=== PATIENT | female | born 1945 | race Caucasian/White ===

== ENCOUNTER → 2017-08-29 | Outpatient (CLI) | payer MEDICARE, BC, OTHER ==
[2016-11-24 17:35] VITALS: BP 133/79
--- NOTE | 2017-08-29 14:21 | RAD ---
DATE: 08/29/2017 EXAM: MAMMO RANI SCREENING BILATERAL HISTORY: Screening COMPARISON: 10/28/2015 This study was interpreted with the benefit of Computerized Aided Detection (CAD). FINDINGS: Breast Density: FATTY The Breast Parenchyma is primarily fatty replaced. Breast parenchyma level density A.. There has not been a significant change in the appearance of the breasts compared to the previous exam IMPRESSION: Benign findings BI-RADS CATEGORY: 2 BENIGN FINDING(S) RECOMMENDED FOLLOW-UP: 12M 12 MONTH FOLLOW-UP PQRS compliance statement: Patient information was entered into a reminder system with a target due date 08/29/2018 for the next mammogram. Mammography is a sensitive method for finding small breast cancers, but it does not detect them all and is not a substitute for careful clinical examination. A negative mammogram does not negate a clinically suspicious finding and should not result in delay in biopsying a clinically suspicious abnormality. "Our facility is accredited by the [employer] Mammography Program."
== END | disposition home or self-care (01) ==
LOC: MAMMO 11:09
PROVIDERS: ATTEND Specialist
DX: Z12.31 Encounter for screening mammogram for malignant neoplasm of breast (principal)
CPT/HCPCS: 77063; G0202; 77067

== ENCOUNTER → 2018-04-12 | Outpatient (CLI) | payer MEDICARE, BC, OTHER ==
[2016-11-24 17:35] VITALS: BP 133/79
--- NOTE | 2018-04-13 08:14 | RAD ---
Bilateral lower extremity arterial ultrasound History: Hypertension, diabetes, previous smoker, blue color of the bilateral feet Findings: Multiple grayscale, color, and duplex spectral analysis sonographic images were acquired of the lower extremity arteries bilaterally. No significant focal stenosis or vessel occlusion is demonstrated. There is minimal scattered plaque. There are mostly triphasic to biphasic waveforms bilaterally. Velocities in cm/sec: RIGHT Common femoral artery 94 Profunda femoris artery 69 Proximal SFA 74 Mid SFA 79 Distal SFA 63 Popliteal artery 63 Peroneal artery 46 Dorsalis pedis artery 48 Posterior tibial artery 47-54 Anterior tibial artery 71 LEFT: Common femoral artery 115 Profunda femoris artery 68 Proximal SFA 89 Mid SFA 85 Distal SFA 65 Popliteal artery 62 Peroneal artery 55 Dorsalis pedis artery 59 Posterior tibial artery 69-74 Anterior tibial artery 63 Impression: 1. No significant focal stenosis or vessel occlusion is demonstrated. Electronically signed by: Darion Barnett MD (04/13/2018 8:11 AM) [id number]
== END | disposition home or self-care (01) ==
LOC: US 15:01
PROVIDERS: ATTEND Specialist
DX: I70.293 Other atherosclerosis of native arteries of extremities, bilateral legs (principal); R23.0 Cyanosis; I10 Essential (primary) hypertension; E11.9 Type 2 diabetes mellitus without complications; Z87.891 Personal history of nicotine dependence
CPT/HCPCS: 93923

== ENCOUNTER 2018-05-21 22:13 | Inpatient (IN) | payer MEDICARE, BC, OTHER ==
[~2018-05-21] VITALS: Ht 157.5 cm; Wt 97.3 kg
--- NOTE | 2018-05-21 22:18 | ED.ADGEN ---
Past History Past Medical History: Arthritis, Cancer, Diabetes, Hypertension, Other Past Surgical History: Tonsillectomy, Other Alcohol Use: Occasionally Drug Use: None Adult General Chief Complaint Chief Complaint ".. I ve been sleeping all day... and my memory is not right.. and I am confused... I guess I came down to check on my .. and I had not been down all day... .. I noticed.. I having trouble finding words..and I ve been having problems.. with my memory tonight.... 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 I took some meds for my chronic back pain....but not that much... 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 Patient reportedly acting confused at home per and 's project engineering director. Patient appears to be overly sedated. Speech is slurred. Does have problems with word selection. Does have problems with memory on short term events. Patient is aware of this new finding. Patient advised she had taken muscle relaxers baclofen today for her back pain. Patient denies any other drug usage. Patient denies any alcohol usage. No history of fever or chills. No history of trauma or fall. Popeye Coma Scale was 15. The patient does appear to have slow response to questions. No focal defects appreciated other than gait was somewhat wide and slightly discoordinated. Has had a previous episode of this type confusion when she ingested too many pain tablets accidently. Pt. has hx of Stage IV, Kidney cancer. Pt. receiving immune therapy for cancer at . No chemo or radiation. No recent travel or ill contacts. has ALS. Pt. normally follows with Dr. Ortega. Review of Systems Review of Systems Constitutional: Denies fever or chills [] Eyes: Denies change in visual acuity, redness, or eye pain [] HENT: Denies nasal congestion or sore throat [] Respiratory: Denies cough or shortness of breath [] Cardiovascular: No additional information not addressed in HPI [] GI: Denies abdominal pain, nausea, vomiting, bloody stools or diarrhea [] : Denies dysuria or hematuria [] Musculoskeletal: Denies back pain or joint pain [] Integument: Denies rash or skin lesions [] Neurologic: Denies headache, focal weakness or sensory changes []complaints of confusion Endocrine: Denies polyuria or polydipsia [] All other systems were reviewed and found to be within normal limits, except as documented in this note. Family History Family History Non-contributory Current Medications Current Medications See Nursing for home meds Allergies Allergies Allergies Coded Allergies Type Severity Reaction Last Updated Verified Sulfa (Sulfonamide Antibiotics) Allergy Intermediate 11/24/16 Yes latex Allergy Intermediate 11/24/16 Yes Physical Exam Physical Exam Constitutional: , no acute distress, non-toxic appearance. [] HENT: Normocephalic, atraumatic, bilateral external ears normal, oropharynx moist, no oral exudates, nose normal. [] Eyes: PERRLA, EOMI, conjunctiva normal, no discharge. [] Neck: Normal range of motion, no tenderness, supple, no stridor. [] Cardiovascular:Heart rate regular rhythm, no murmur [] Lungs & Thorax: Bilateral breath sounds clear to auscultation []Port on Rt. Abdomen: Bowel sounds normal, soft, no tenderness, no masses, no pulsatile masses. [] Obese. Skin: Warm, dry, no erythema, no rash. [] Back: No tenderness, no CVA tenderness. [] Old surgery scar. Extremities: No tenderness, no cyanosis, no clubbing, ROM intact, no edema. [] Neurologic: Alert and oriented X 3, normal motor function, normal sensory function, no focal deficits noted. Supervisor Spring Up equal. DTR +2 Patella and Brachial. Slightly wide gait and slight discoordinated. Was slow to answer questions and word finding / selection. Slurred speech as if over sedated. Psychologic: Affect anxious, judgement normal, mood normal. [] Current Patient Data Vital Signs Vital Signs Date Time Temp Pulse Resp B/P (MAP) Pulse Ox O2 Delivery O2 Flow Rate FiO2 05/21/18 22:54 84 19 142/88 (106) 99 Room Air 05/21/18 22:21 98.3 Lab Results Laboratory Tests Test 05/21/18 22:21 05/21/18 22:44 White Blood Count 11.1 x10^3/uL (4.0-11.0) H Red Blood Count 4.68 x10^6/uL (3.50-5.40) Hemoglobin 13.2 g/dL (12.0-15.5) Hematocrit 41.0 % (36.0-47.0) Mean Corpuscular Volume 88 fL (79-100) Mean Corpuscular Hemoglobin 28 pg (25-35) Mean Corpuscular Hemoglobin Concent 32 g/dL (31-37) Red Cell Distribution Width 14.6 % (11.5-14.5) H Platelet Count 179 x10^3/uL (140-400) Neutrophils (%) (Auto) 80 % (31-73) H Lymphocytes (%) (Auto) 15 % (24-48) L Monocytes (%) (Auto) 4 % (0-9) Eosinophils (%) (Auto) 1 % (0-3) Basophils (%) (Auto) 1 % (0-3) Neutrophils # (Auto) 8.9 x10^3uL (1.8-7.7) H Lymphocytes # (Auto) 1.7 x10^3/uL (1.0-4.8) Monocytes # (Auto) 0.4 x10^3/uL (0.0-1.1) Eosinophils # (Auto) 0.1 x10^3/uL (0.0-0.7) Basophils # (Auto) 0.1 x10^3/uL (0.0-0.2) Erythrocyte Sedimentation Rate 24 (0-25) Prothrombin Time 10.4 SEC (9.4-11.4) Prothrombin Time INR 1.0 (0.9-1.1) PTT 29 SEC (23-33) Sodium Level 142 mmol/L (136-145) Potassium Level 4.5 mmol/L (3.5-5.1) Chloride Level 107 mmol/L (98-107) Carbon Dioxide Level 26 mmol/L (21-32) Anion Gap 9 (6-14) Blood Urea Nitrogen 22 mg/dL (7-20) H Creatinine 1.3 mg/dL (0.6-1.0) H Estimated GFR (Cockcroft-Gault) 40.2 Glucose Level 174 mg/dL (70-99) H Calcium Level 9.7 mg/dL (8.5-10.1) Magnesium Level 1.6 mg/dL (1.8-2.4) L Ammonia < 10 mcmol/L (11-34) L Creatine Kinase 114 U/L (26-192) Creatine Kinase MB (Mass) 1.9 ng/mL (0.0-3.6) Creatine Kinase MB Relative Index 1.7 % (0-4) Troponin I Quantitative < 0.017 ng/mL (0-0.055) HO-Fpr-I-Type Natriuretic Peptide 850 pg/mL (0-124) H Urine Collection Type Unknown Urine Color Yellow Urine Clarity Clear Urine pH 5.5 Urine Specific [place] 1.015 Urine Protein 30 mg/dl (NEG-TRACE) Urine Glucose (UA) Neg mg/dL (NEG) Urine Ketones (Stick) Neg mg/dL (NEG) Urine Blood Neg (NEG) Urine Nitrite Neg (NEG) Urine Bilirubin Neg (NEG) Urine Urobilinogen Dipstick 0.2 mg/dL (0.2 mg/dL) Urine Leukocyte Esterase Neg (NEG) Urine RBC 0 /HPF (0-2) Urine WBC Occ /HPF (0-4) Urine Squamous Epithelial Cells Occ /LPF Urine Bacteria 0 /HPF (0-FEW) Urine Opiates Screen Neg (NEG) Urine Methadone Screen Neg (NEG) Urine Barbiturates Neg (NEG) Urine Phencyclidine Screen Neg (NEG) Urine Amphetamine/Methamphetamine Neg (NEG) Urine Benzodiazepines Screen Neg (NEG) Urine Cocaine Screen Neg (NEG) Urine Cannabinoids Screen Neg (NEG) Urine Ethyl Alcohol Neg (NEG) EKG EKG My interpretation of EKG shows sinus 66, Lt. axis, no acute[] Radiology/Procedures Radiology/Procedures My interpretation of chest x-ray shows no acute cardiopulmonary findings. Does have a port on the right. [] My interpretation CT of head shows no shift, mass, edema, bleed, or fracture. No obvious metastatic lesion, but it is a non-contrast CT Course & Med Decision Making Course & Med Decision Making Pertinent Labs and Imaging studies reviewed. (See chart for details) Discussed presentation, testing and tx. plan with Dr. Mcfarland. Pt. to be admitted or further eval and tx. by Dr. Mcfarland. Neuro consult in [place] Dr. Edilson Be Suspect this is untoward or an over sedation with baclofen. Could consider- metastatic lesions? [] Final Impression Final Impression 1. Mental Status Change[] 2. Elevated BUN and creatinine 22/`1.2 3. Diabetes 174 4. Mild leukocytosis 5. Stage IV renal cancer- on Immuno therapy - Rt. Renal mass 6. Chronic Back Pain- history of laminectomy 7. Suspect Over Sedation with Muscle Relaxer- baclofen 8. Hx. of recent UTI- Txed. Dragon Disclaimer Dragon Disclaimer This electronic medical record was generated, in whole or in part, using a voice recognition dictation system. DIAMOND CAMPOVERDE MD May 21, 2018 22:18
[2018-05-21 22:53] LABS: BASO # 0.1 x10^3/uL (0.0-0.2); BASO % 1 % (0-3); EOS # 0.1 x10^3/uL (0.0-0.7); EOS % 1 % (0-3); HEMOGLOBIN 13.2 g/dL (12.0-15.5); LYMPH # 1.7 x10^3/uL (1.0-4.8); LYMPH % 15 % (24-48); MEAN CORPUSCULAR HEMOGLOBIN 28 pg (25-35); MEAN CORPUSCULAR HGB CONC 32 g/dL (31-37); MEAN CORPUSCULAR VOLUME 88 fL (79-100); MONO # 0.4 x10^3/uL (0.0-1.1); MONO % 4 % (0-9); NEUT # 8.9 x10^3uL (1.8-7.7); NEUT % 80 % (31-73); PLATELET COUNT 179 x10^3/uL (140-400); RED BLOOD COUNT 4.68 x10^6/uL (3.50-5.40); RED CELL DISTRIBUTION WIDTH 14.6 % (11.5-14.5); WHITE BLOOD COUNT 11.1 x10^3/uL (4.0-11.0)
[2018-05-21 23:14] LABS: BARBITURATES NEG (NEG); BENZODIAZEPINES NEG (NEG); CANNABINOIDS NEG (NEG); COCAINE NEG (NEG); METHADONE NEG (NEG); OPIATES NEG (NEG); PHENCYCLIDINE NEG (NEG)
[2018-05-21 23:15] LABS: AMPHETAMINE/METHAMPHETAMINE NEG (NEG)
[2018-05-21 23:16] LABS: CALCIUM 9.7 mg/dL (8.5-10.1); CREATININE 1.3 mg/dL (0.6-1.0); GFR 40.2; MAGNESIUM 1.6 mg/dL (1.8-2.4); POTASSIUM 4.5 mmol/L (3.5-5.1)
[2018-05-21 23:19] LABS: BACTERIA,URINE 0 /HPF (0-FEW); BILIRUBIN,URINE NEG (NEG); CLARITY,URINE CLEAR; COLOR,URINE YELLOW; GLUCOSE,URINE NEG (NEG); NITRITE,URINE NEG (NEG); RBC,URINE 0 /HPF (0-2); SQUAMOUS EPITHELIAL CELL,UR OCC /LPF; UROBILINOGEN,URINE 0.2 mg/dL (0.2 mg/dL); WBC,URINE OCC /HPF (0-4)
[2018-05-22 00:02] LABS: SEDIMENTATION RATE 24 (0-25)
--- NOTE | 2018-05-22 00:10 | RAD ---
PA and lateral chest x-ray HISTORY: Altered mental status, confusion, renal cancer. FINDINGS: Right jugular portacatheter tip radiographic region of SVC. Heart size normal. Mediastinal silhouette is normal. Small calcified granuloma right upper lobe. No pneumothorax, pulmonary opacities or pleural effusions. Bridging thoracic disc osteophytes are present. IMPRESSION: No acute process. Right jugular portacatheter tip SVC. No pneumothorax. Electronically signed by: Judson Lewis MD (05/22/2018 12:07 AM) [facility]
[2018-05-22] MEDS ORDERED: ONDANSETRON PF 4 MG/2 ML VIAL. ONE (00:46)
[2018-05-22] MEDS ORDERED: ROSU10TA25 PO (01:01)
[2018-05-22] MEDS ORDERED: ESOM40CA47 PO (01:01)
[2018-05-22] MEDS ORDERED: FESO8TAB PO (01:01)
[2018-05-22] MEDS ORDERED: LISI-334 PO (01:01)
[2018-05-22] MEDS ORDERED: SITA100T PO (01:01)
[2018-05-22 01:15] VITALS: BP 156/83
--- NOTE | 2018-05-22 03:22 | RAD ---
CT head without contrast HISTORY: Altered mental status, confusion, stage IV renal cancer. TECHNIQUE: [address] imaging skull base to vertex. FINDINGS: Mild generalized brain atrophy. No intracranial hemorrhage, mass, hydrocephalus, extra-axial fluid collections or infarction. No acute ischemic change. Soft tissue calcifications about the frontal scalp and bridge of the nose. Opacification right posterior ethmoid sinuses. Mastoids, orbits and bones are unremarkable. IMPRESSION: No acute intracranial CT abnormality. Exposure: One or more of the following individualized dose reduction techniques were utilized for this examination: 1. Automated exposure control 2. Adjustment of the mA and/or kV according to patient size 3. Use of iterative reconstruction technique Electronically signed by: Judson Lewis MD (05/22/2018 3:19 AM) [facility]
[2018-05-22 06:31] VITALS: BP 137/80
[2018-05-22 11:10] VITALS: BP 131/79
[2018-05-22 11:21] LABS: ALBUMIN 3.8 g/dL (3.4-5.0); ALBUMIN/GLOBULIN RATIO 0.9 (1.0-1.7); TOTAL PROTEIN 7.9 g/dL (6.4-8.2)
[2018-05-22 11:22] LABS: CALCIUM 9.7 mg/dL (8.5-10.1); CREATININE 1.3 mg/dL (0.6-1.0); GFR 40.2; POTASSIUM 4.7 mmol/L (3.5-5.1); TOTAL BILIRUBIN 0.4 mg/dL (0.2-1.0)
--- NOTE | 2018-05-22 12:00 | HP ---
ADMIT DATE: 05/21/2018 HISTORY OF PRESENT ILLNESS: The patient is a 72-year-old female patient who came to the Emergency Room with complaint of increased confusion. She reportedly acting confused at home. Per and 's sea air land officer, the patient appears to be overly sedated, speech is slurred. She does have problems with word selection and short-term memory. She is aware of this new finding. The patient advised that she has taken muscle relaxer, baclofen yesterday for her back pain. Denied any drug usage. She denied any alcohol. No history fever or chills. Her Popeye coma scale on arrival was 15. The patient does appear to have low response to questions, but no focal deficit was appreciated other than the gait was somewhat wide and slightly disorganized, discoordinated. She apparently has similar episode of confusion after she ingested too many pain tablets accidentally. She has history of stage 4 kidney cancer, receiving immunotherapy for cancer at , and no chemoradiation. The patient denied any recent travel or ill contact. Her has amyotrophic lateral sclerosis. She is the caregiver. She apparently was evaluated extensively in the Emergency Room. Her laboratory work showed mild leukocytosis. Her chemistry showed kidney impairment. Her serum calcium was only 9.7, magnesium was 1.6. Unfortunately, no serum albumin to corrected for. Her toxic screen was essentially negative. Urinalysis was unremarkable and her CT scan of the head showed mild generalized brain atrophy, no intracranial hemorrhage, mass, hydrocephalus, extraaxial fluid collection, or infarction. No acute ischemic changes. Soft tissue calcification about the frontal scalp and bridge of the nose. Opacification in the right posterior ethmoid sinuses and mastoids with bones are unremarkable. It has to be corrected for albumin. It could be higher, it could be the same normal, so I cannot really tell have to be the albumin to asked them to check it. PAST MEDICAL HISTORY: Her past medical history is significant for type 2 diabetes, hypertension, hyperlipidemia, occupational asthma, renal cell carcinoma of the left kidney diagnosed incidentally, chronic back pain, obstructive sleep apnea. PAST SURGICAL HISTORY: Past surgical history is significant for left heart catheterization, bilateral cataract extraction, tonsillectomy, sinus surgery, EGD and colonoscopy. She has also ruptured Achilles tendon as well as total abdominal hysterectomy and bilateral salpingo-oophorectomy and back surgery. ALLERGIES: SHE IS ALLERGIC TO LATEX, LIPITOR, AND DILAUDID WELL SULFA DRUGS. MEDICATIONS: She is currently on following medications: She is on Crestor 10 mg once a day, lisinopril 20 mg once a day, esomeprazole for Nexium 40 mg once a day, Januvia 100 mg daily, and Toviaz 8 mg daily. FAMILY HISTORY: She has no brothers or sister. Her father at the age of 75 because of the complication of open heart surgery. He is also diabetic and mother at the age of 74 because of pancreatic cancer. SOCIAL HISTORY: She is , taking care of her , who has amyotrophic lateral sclerosis. She has a son and a daughter. She smoked for 15 years, quit in 1995. She has not drink alcohol in 3 years. She is a retired registered nurse. REVIEW OF SYSTEMS: The patient denied any blurring of vision. She has bilateral cataract extractions but denied any glaucoma or macular degeneration. Denied any earache, tinnitus or sensorineural deafness. Denied nosebleeds, stuffy nose or postnasal drip. Denied any sore throat, sore tongue, toothache, hoarseness of voice or difficulty swallowing. Denied any nausea, vomiting, diarrhea or constipation. Denied any hematemesis, melena or hematochezia. Denied any chest pain, shortness of breath, orthopnea or paroxysmal nocturnal dyspnea. Denied any cough, phlegm or hemoptysis. PHYSICAL EXAMINATION: GENERAL: When I examined her, she looked well and was clearly in no apparent respiratory distress, pale, but no jaundice, cyanosis, or thyromegaly. No jugular venous distension. No lower limb edema. VITAL SIGNS: Her heart rate was 79, blood pressure was 142/88, temperature was 98.3, respiratory rate 21, and oxygen saturation was 98%. HEENT: Examination of the head, eyes, ears, nose and throat showed normocephalic, atraumatic. NECK: Supple. HEART: Showed normal first and second sounds. No gallop, rub or murmur. CHEST: Clear to auscultation. No crepitation or rhonchi. ABDOMEN: Distended, soft, nontender. NEUROLOGIC: She is awake, alert, responding appropriately. Her cranial nerves are intact. She moves extremities without difficulty. She ambulates without assistance or assistive devices on her own. There is no evidence of any cerebellar dysfunction and Romberg's test was negative. LABORATORY AND DIAGNOSTIC DATA: While in the Emergency Room, she had lab work done showed a white cell count of 11,100, hemoglobin 13.2, hematocrit 41, MCV 88, and platelet count of 179,000 with normal manual differential. Serum sodium 142, potassium 4.5, chloride 107, bicarbonate 26, anion gap of 9, BUN 22, creatinine 1.3, estimated GFR was 40 mL per minute. Her glucose was 174, calcium was 9.7, magnesium was 1.6. Ammonia was less than 10. CK, CK-MB, and troponin are within normal range. Her beta natriuretic peptide was slightly elevated at 150. Her prothrombin time was 10.4, INR of 1, aPTT was 29. Urinalysis showed the urine was yellow, clear with the pH of 5.5, specific gravity of 1.015. There was small amount of protein. The urine was negative for glucose, ketones, blood, nitrites, and leukocyte esterase. There are no RBCs, no WBCs, and no bacteria, and her urine toxicology screen was negative. She did have a CT scan of the head, which showed that she has mild generalized brain atrophy, no intracranial hemorrhage, mass, hydrocephalus, extraaxial fluid collection, or infarction. No acute ischemic changes. Soft tissue calcification about the frontal scalp and the bridge of the nose. Opacification of the right posterior ethmoid sinuses, mastoids, orbits, and bones are unremarkable. Her chest x-ray showed right jugular Port-A-Cath at radiographic region of the superior vena cava and heart size is normal, mediastinal silhouette normal, small calcified granuloma right upper lobe. No pneumothorax, pulmonary opacities or pleural effusion. Bridging thoracic disk osteophytes are present. ASSESSMENT AND PLAN: So, basically, this is a 72-year-old female patient, who came in with altered mental status and mild leukocytosis, slightly elevated BUN and creatinine, stage 4 renal cell cancer, on immunotherapy. Right now, she has chronic back pain and apparently suspected over sedation with a muscle relaxer and she took baclofen. We have consulted Dr. Schmidt for evaluation and treatment. Her serum albumin was not done, so we will repeat the labs to adjust her calcium as she is known to have hypercalcemia due to stage 4 renal cell carcinoma and we will decide on further management according to the finding. MAXIMILIAN ARROYO MD DR: Elizabet JOB#: [id number] / [id number]
[2018-05-22] MEDS: OXYBUTYNIN CHLORIDE 5 MG TABLET PO SCH ×2 (13:33→21:22)
[2018-05-22 14:57] VITALS: BP 125/79
[2018-05-22] MEDS ORDERED: ACETAMINOPHEN 325 MG TABLET PO PRN (15:15)
[2018-05-22 19:00] VITALS: BP 120/64
[2018-05-22] MEDS ORDERED: ATORVASTATIN CALCIUM 20 MG TABLET PO SCH (21:00)
--- NOTE | 2018-05-22 21:18 | PN ---
DATE: 05/22/2018 SUBJECTIVE: The patient was admitted with altered mental status. On arrival here, overly sedated. Speech is slurred. She does have problems with word selection and short-term memory. Her daughter stated that she has similar presentation. Her calcium was high, so I did repeat her lab work this morning to include serum albumin and in fact, her calcium was 9.7, corrected for albumin of 3.8 and calcium is well within normal range. She has slightly impaired kidney function, which is stable. Her serum sodium is normal. Her white cell count slightly elevated; however, CT scan of the head was unremarkable. When I examined her this morning, she looked well and was clearly in no apparent respiratory distress, seemed to be more awake, alert, although she seemed to have some kind of pressured speech, continued to have some difficulty finding words. PHYSICAL EXAMINATION: GENERAL: The patient looked well and slightly pale, but no jaundice, cyanosis, or thyromegaly. No jugular venous distension. No limb edema. VITAL SIGNS: Her heart rate was 73, blood pressure was 131/79, temperature was 98.3, respiratory rate 20, and oxygen saturation was 93%. NEUROLOGIC: She was awake, alert, responding appropriately. Her cranial nerves intact. She moves extremities without difficulty. She ambulates without assistance or assistive devices. She has no evidence of cerebellar dysfunction and Romberg test was negative. LABORATORY DATA: This morning showed a serum sodium of 141, potassium 4.7, chloride 105, bicarbonate 28, anion gap of 8, BUN 20, creatinine 1.3, estimated GFR was 40 mL per minute. Her glucose was 152. Her calcium was 9.7. Total bilirubin, AST, ALT, alkaline phosphatase were normal. Total protein was 7.9, albumin was 3.8. Ammonia was normal. IMPRESSION: This is a 72-year-old female patient who was admitted with altered mental status, slightly elevated BUN and creatinine. The patient has nephrectomy for renal cell carcinoma. She is known to have diabetes, had mild leukocytosis. She has stage IV renal cell carcinoma and immunotherapy, chronic back pain, and history of laminectomy. She apparently was admitted with a questionable oversedation with a muscle relaxer. She has recent urinary tract infection that was treated. Urinalysis was unremarkable. PLAN: My plan is to consult Dr. Obregon for further evaluation. I will repeat all her lab works tomorrow and decide on further management accordingly. MAXIMILIAN ARROYO MD DR: MAGALYS/sofia JOB#: [id number] / [id number]
[2018-05-22 22:51] VITALS: BP 114/48
[2018-05-23 06:14] LABS: HEMATOCRIT 38.2 % (36.0-47.0); HEMOGLOBIN 12.5 g/dL (12.0-15.5); RED BLOOD COUNT 4.34 x10^6/uL (3.50-5.40); RED CELL DISTRIBUTION WIDTH 14.7 % (11.5-14.5); WHITE BLOOD COUNT 9.4 x10^3/uL (4.0-11.0)
[2018-05-23 06:24] LABS: ALBUMIN 3.6 g/dL (3.4-5.0); CALCIUM 9.4 mg/dL (8.5-10.1); CREATININE 1.2 mg/dL (0.6-1.0); POTASSIUM 4.6 mmol/L (3.5-5.1); TOTAL BILIRUBIN 0.5 mg/dL (0.2-1.0); TOTAL PROTEIN 7.3 g/dL (6.4-8.2)
[2018-05-23 06:25] VITALS: BP 118/81
[2018-05-23] MEDS ORDERED: PANTOPRAZOLE 40 MG TABLET. PO SCH (07:30)
--- NOTE | 2018-05-23 07:54 | RAD ---
Carotid ultrasound, 05/22/2018: HISTORY: Dizziness, altered mental status Duplex evaluation of the carotid arteries and neck was performed including grayscale, color-flow and spectral Doppler analysis. There is a mild to moderate focal plaque at the right carotid bulb. It appears partially calcified. The peak systolic velocity in the right internal carotid artery is 56 cm/s with an end-diastolic velocity of 16 cm/s and an internal carotid to common carotid artery ratio 1.4. These Doppler findings suggest luminal narrowing in the 0-50 percent diameter range. There is mild plaquing at the left carotid bifurcation. The peak systolic velocity in the left internal carotid artery is 44 cm/s with an end-diastolic velocity of 13 cm/s and an internal carotid to common carotid artery ratio of 0.9. Antegrade flow is present in both vertebral arteries in the neck. IMPRESSION: Mild atherosclerotic plaquing at both carotid bifurcations, right greater than left with underlying luminal narrowing in the 0-50 percent diameter range bilaterally. Note: Stenosis calculations for CT, MRA and conventional angiography are based upon determination of the distal ICA diameter in accordance with the NASCET methodology. Stenosis calculations for Doppler studies are derived from validated velocity criteria which are known to correlate with NASCET methodology of determining stenosis. Electronically signed by: Clinton Gonzales MD (05/23/2018 7:51 AM) [facility]
[2018-05-23 08:46] VITALS: BP 118/81
[2018-05-23] MEDS: OXYBUTYNIN CHLORIDE 5 MG TABLET PO SCH (08:47)
[2018-05-23] MEDS ORDERED: LISINOPRIL 20 MG TABLET PO SCH (09:00)
[2018-05-23] MEDS ORDERED: LINAGLIPTIN 5 MG TABLET PO SCH (09:00)
--- NOTE | 2018-05-23 09:34 | CONS ---
DATE OF CONSULTATION: 05/22/2018 NEUROLOGIC CONSULT REFERRING PHYSICIAN: Dr. Mcfarland. CHIEF COMPLAINT: Mental status changes. HISTORY OF PRESENT ILLNESS: This is a 72-year-old right-handed female who was admitted through Emergency Room after she presented with 1 day -- intermittent confusion, described as a short-term memory difficulty finding words and unsteady and in the Emergency Room, the patient was found to have a slurred speech. She stated she probably overdosed of muscle relaxants. She took it prior to the admission. According to her, she took baclofen, number is uncertain, probably 1 or more tablets. The patient has been recently treated for urinary tract infections. Currently, she denies headaches, visual disturbances, nausea, vomiting, chest pain, shortness of breath or palpitation. She has been suffering from chronic lower back pain. She denies any recent head injuries or falls. Initial nonenhanced head CT scan revealed no evidence of acute intracranial process. The patient was admitted for further evaluation for her alteration of mental status. PAST MEDICAL HISTORY: Significant for diabetes mellitus type 2, hypertension, hyperlipidemia, asthma, stage 4 of renal cell carcinoma diagnosed at [facility] for which she has been receiving immunotherapy, but no chemo or radiation. The patient stated that last result of workup for kidney cancer was promising and showed a shrinking of the tumor. History of chronic radicular lower back pain and obstructive sleep apnea. PAST SURGICAL HISTORY: Significant for a lumbosacral laminectomy, sinus surgery, tonsillectomy, cataract extraction, total abdominal hysterectomy. SOCIAL HISTORY: The patient is . 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 She denies smoking, alcohol drinking, or illicit drug use. REVIEW OF SYSTEMS: A 10-point review of system was performed as mentioned above in history of present illness. However, she denies a history of syncope for seizure or head injuries. CURRENT HOME MEDICATIONS: Crestor 10 mg daily, lisinopril 20 mg daily, esomeprazole 40 mg daily, Januvia 100 mg daily and Toviaz 8 mg daily. ALLERGIES: DILAUDID, SULFA DRUGS, LIPITOR AND LATEX. PHYSICAL EXAMINATION: GENERAL: A moderately obese white female, in no acute distress. VITAL SIGNS: Blood pressure 137/80, respiratory rate 20, pulse of 77 regular, temperature 98.2, oxygen saturation 96% on room air. HEENT: Normocephalic, atraumatic, otherwise unremarkable. NECK: Supple. Negative for carotid bruit, lymphadenopathy or thyromegaly. LUNGS: Clear to A and P. CARDIOVASCULAR: Regular rhythm, normal S1, S2. There is no S3, S4 or murmur. ABDOMEN: Soft. Bowel sounds positive. EXTREMITIES: Negative for cyanosis, clubbing or pitting edema. MENTAL STATUS: The patient is alert and oriented x 3. Speech is fluent. There is no language dysfunction. The patient recalls 3/3 immediately and 2/3 after 1 and 3 minutes. Judgment and abstract thinking is normal. The patient denies hallucination or delusion. CRANIAL NERVES: Visual pope are full. The pupils are reactive to light and accommodation. The extraocular movements are intact. There is no nystagmus. There is no facial motor or sensory deficit. Hearing is intact bilaterally. The palate is elevated symmetrically. Sternocleidomastoid muscles are powerful bilaterally. The patient shrugs her shoulders symmetrically. Protrudes her tongue in the midline without fasciculation or atrophy. MOTOR EXAMINATION: No focal muscle bulk was seen. The tone is normal. The strength is 5/5 throughout. Sensory examination revealed normal pinprick and light touch senses throughout. Deep tendon reflexes were symmetric and with absent Achilles responses. Gait: The stance is steady, but tandem gait is difficult. DIAGNOSTIC DATA: Initial nonenhanced head CT scan revealed no acute intracranial process, but showed mild generalized brain atrophy consistent with her age, otherwise unremarkable. Chest x-ray was negative for any acute cardiopulmonary process. LABORATORY DATA: CBC revealed white blood cells of 11,100; hemoglobin 13.2; hematocrit 41; platelet count 179,000. Chemistry revealed sodium 141, potassium 4.7, chloride 105, CO2 of 28, BUN 20, creatinine 1.3, glucose 152, calcium 9.7. Enzymes are normal. Albumin is normal. Urinalysis is negative for urinary tract infections and urine drug screen is negative. PT is 10.4, INR is 1, aPTT is 29. IMPRESSION: 1. Acute mental status changes, likely due to over sedation by muscle relaxant; however, we also need to rule out a possibility of a transient ischemic attack. 2. Multiple medical problems include obstructive sleep apnea, hypertension, hyperlipidemia, diabetes mellitus type 2, chronic lower back pain and history of stage 4 renal carcinoma treated with immunotherapy. RECOMMENDATIONS: 1. We will continue with current management initiated by Dr. Mcfarland. 2. I will obtain carotid Doppler study. M Haile MONCADA MD DR: BIANCA/sofia JOB#: [id number] / [id number]
--- NOTE | 2018-05-23 12:25 | DS ---
DATE OF DISCHARGE: 05/23/2018 HISTORY OF PRESENT ILLNESS: The patient is a 72-year-old female patient who was admitted with altered mental status. She apparently was overly sedated when she took a muscle relaxer, was having problems with word selection and short-term memory. Her daughter stated that she has similar presentation when her calcium was high and I did actually check her calcium and serum albumin and her calcium is within normal range. All her lab works are fine. When I saw her today, the patient was working with the occupational therapist and denied any complaint. She seemed to be completely awake, alert, oriented to time, place and person. Denied to have any further problems with finding words, insisting that she wants to go home. She has her appointment tomorrow and she would not miss it for anything else. Nursing staff did not voice any concerns that she had an uneventful night. PHYSICAL EXAM: GENERAL: When I examined her, she looked well and was clearly in no apparent respiratory distress, pale, but no jaundice, cyanosis, or thyromegaly. No jugular venous distension. No limb edema. VITAL SIGNS: Her heart rate was 60, blood pressure 118/81, temperature was 98.3, respiratory rate 20, and oxygen saturation was 98% on room air. HEAD, EYES, EARS, NOSE AND THROAT: Showed normocephalic, atraumatic. NECK: Supple. HEART: Showed normal first and second sounds. No gallop, rub or murmur. CHEST: Clear to auscultation. No crepitation or rhonchi. ABDOMEN: Distended, soft, nontender. NEUROLOGIC: She is awake, alert, responding appropriately. All cranial nerves are intact. She moves extremities without difficulty. She is able to ambulate without assistance or assistive devices. LABORATORY DATA: This morning showed a serum sodium 142, potassium 4.6, chloride 106, bicarbonate 27, anion gap of 9, BUN 24, creatinine 1.2, estimated GFR was 44 mL per minute. Her glucose 140, calcium was 9.4. Total bilirubin, AST, ALT, alkaline phosphatase were normal. Total protein was 7.3, albumin was 3.6. Her white cell count was 9400, hemoglobin 12.5, hematocrit 38, MCV 88, and platelet count of 175,000. DISCHARGE MEDICATIONS: She was discharged home on Nexium 40 mg once a day, Toviaz 8 mg daily, lisinopril 20 mg once a day and sitagliptin phosphate for Januvia 100 mg once a day. FINAL DISCHARGE DIAGNOSES: 1. Altered mental status likely due to muscle relaxer, resolved. 2. Chronic renal failure. She has a nephrectomy due to stage 4 renal cell carcinoma, on immunotherapy. 3. Type 2 diabetes mellitus. 4. Chronic back pain. MAXIMILIAN ARROYO MD DR: MAGALYS/sofia JOB#: [id number] / [id number]
--- NOTE | 2018-05-23 12:26 | CONS ---
DATE OF CONSULTATION: 05/23/2018 ADDENDUM If you have any problems regarding that, just give me a call at my office, my office number [phone]. M Haile MONCADA MD DR: BIANCA/sofia JOB#: [id number] / [id number]
--- NOTE | 2018-05-24 00:44 | CONS ---
DATE OF CONSULTATION: 05/22/2018 PSYCHIATRIC CONSULTATION This late entry 05/22/2018 covers elements not covered in my initial note 05/22/2018. IDENTIFYING DATA: The patient is a 72-year-old female, seen in room 1131, [address] [place] [address], for a psychiatric consult requested by Dr. Mcfarland on account of the patient's "manic" symptoms. The patient seen individually, discussed with nursing staff, reviewed the chart. I met with the patient's daughter who is visiting from [place]. CHIEF COMPLAINT: "She is 180 degrees better this evening than she was this morning." This is according to the daughter. According to the patient, "I just like to talk too much. 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 My mind is okay." HISTORY OF PRESENT ILLNESS: Reportedly, the patient lives at home with her who suffers from Lizeth Gehrig's disease and she has been taking care of him. Reportedly, she presented to the Emergency Room with increased confusion. According to the and 's zipper setter chainstitch, she was overly sedated. Speech was slurred, having word selection problem, short term memory problems, and this was a new finding. She had taken baclofen evening of Tuesday and then slept 24 hours after that, but not used any other prescription or nonprescription medications. Initially, she was slow to respond to questions, but there were no focal deficits noted. She was disorganized and discoordinated. She additionally has a history of stage 4 kidney cancer, receiving immunotherapy at . No chemoradiation. Her workup in the ER showed mild leukocytosis, kidney impairment. Calcium 9.7, magnesium 1.6. Urine toxicology was negative as was the UA. CT showed mild generalized atrophy, no acute changes. All of this persisted well into her hospitalization, but as noted above, according to the daughter, the patient has had a significant resolution of the confusion during the day on 05/22/2018 and by the evening when I saw her, the daughter felt that the patient was almost back to normal. There is no prior history of bipolar disorder, depression, or psychiatric treatment. No substance abuse history. PAST PSYCHIATRIC HISTORY: As above. PAST MEDICAL HISTORY: Type 2 diabetes mellitus, hypertension, hyperlipidemia, asthma, renal cell carcinoma, left kidney, diagnosed incidentally, chronic back pain, obstructive sleep apnea. PAST SURGICAL HISTORY: Left heart catheterization, bilateral cataract extraction, tonsillectomy, sinus surgery, EGD, colonoscopy. She has also ruptured Achiles tendon as well as total abdominal hysterectomy, bilateral salpingo-oophorectomy, back surgery. ALLERGIES: LATEX, LIPITOR, DILAUDID, SULFA. CURRENT PSYCHOTROPICS: Noncontributory. FAMILY HISTORY: Noncontributory. SOCIAL HISTORY: The patient is , taking care of her , who has amyotrophic lateral sclerosis. She has a son and a daughter. She smoked for 15 years, quit in 1995. No alcohol use noted. She is a registered nurse. REVIEW OF SYSTEMS: Does complain of some shortness of breath, anxiety, but no CV, , GI, pulmonary, eye system symptoms on review other than above. MENTAL STATUS EXAMINATION: The patient was seen individually evening of 05/22/2018. She was oriented to place, situation, little confused about date of her renal surgery and back surgery, but with a little help, she was able to correct for this. She was able to do 3 steps and serial sevens, able to spell world forward and backward with no errors. Does remain somewhat hyperverbal, but the daughter indicated this was typical for the patient, partly due to her anxiety. No suicidal or homicidal ideation. No psychotic symptoms. The daughter feels the patient has had a TIA from which she has recovered. IMPRESSION: Adjustment disorder with anxiety. At this stage, I am unable to see anything strongly suggestive of any other major psychiatric disorder other than an anxiety disorder, unspecified. She does have some cognitive deficits, but again these seemed to be recovering and I will defer management of this to Dr. Schmidt, Neurology and from a medical standpoint to Dr. Mcfarland. PLAN: No change from a psychiatric standpoint be. Dr. Mcfarland, thank you for the opportunity to participate in your patient's care. We will follow with you. MAN Wil ZAMBRANO MD DR: BERNARD/sofia JOB#: [id number] / [id number]
== END 2018-05-23 10:30 | disposition home or self-care (01) | DRG 92 ==
LOC: ER 22:13 → 1 SOUTH 23:30
PROVIDERS: ADMIT Internal Medicine; ATTEND Internal Medicine
DX: G92 Toxic encephalopathy (principal); C64.9 Malignant neoplasm of unspecified kidney, except renal pelvis; T48.205A Adverse effect of unspecified drugs acting on muscles, initial encounter; M19.90 Unspecified osteoarthritis, unspecified site; E11.22 Type 2 diabetes mellitus with diabetic chronic kidney disease; G89.29 Other chronic pain; N18.9 Chronic kidney disease, unspecified; G47.33 Obstructive sleep apnea (adult) (pediatric); F43.22 Adjustment disorder with anxiety; D72.829 Elevated white blood cell count, unspecified; E78.5 Hyperlipidemia, unspecified; E83.52 Hypercalcemia; G31.9 Degenerative disease of nervous system, unspecified; I12.9 Hypertensive chronic kidney disease with stage 1 through stage 4 chronic kidney disease, or unspecified chronic kidney disease; J45.909 Unspecified asthma, uncomplicated; Z98.41 Cataract extraction status, right eye; Z87.440 Personal history of urinary (tract) infections; Z90.710 Acquired absence of both cervix and uterus; Z87.891 Personal history of nicotine dependence; Z83.3 Family history of diabetes mellitus; Z80.0 Family history of malignant neoplasm of digestive organs; Z85.528 Personal history of other malignant neoplasm of kidney; Z90.5 Acquired absence of kidney; Z98.42 Cataract extraction status, left eye; Z88.2 Allergy status to sulfonamides; Z91.040 Latex allergy status; Z79.899 Other long term (current) drug therapy; Z88.8 Allergy status to other drugs, medicaments and biological substances; Z84.89 Family history of other specified conditions; Y92.89 Other specified places as the place of occurrence of the external cause
CPT/HCPCS: 36415; 70450; 71046; 80048; 80053; 80307; 81001; 82140; 82553; 82947; 83735; 83880; 84484; 85025; 85027; 85610; 85651; 85730; 93880; 97110; 97535; 99285-25; G0479

== ENCOUNTER → 2018-08-30 | Outpatient (CLI) | payer MEDICARE, BC, OTHER ==
[~2018-08-30] MED LIST: ESOM40CA47 PO; FESO8TAB PO; LISI-334 PO; ROSU10TA25 PO; SITA100T PO
--- NOTE | 2018-08-30 13:56 | RAD ---
EXAM: Dual energy x-ray absorptiometry (DEXA). HISTORY: Postmenopausal female presents for osteoporosis screening. COMPARISON: 08/17/2016 and 05/20/2003. TECHNIQUE: Dual energy x-ray absorptiometry of the right hip and right radius was performed. Calculation of bone mineral density based on standard deviations above or below the expected young adult normal value (T-score) was completed. FINDINGS: The average bone mineral density in the right hip is is 1.002 g/cmxcm, corresponding with a T-score of 1.2. There has been a 5.1% decrease in density of the right hip compared to a study dated 05/20/2003. The bone mineral density localized to the right femoral neck corresponds with a T-score of -1.2. The average total bone mineral density in the right radius is 0.548 g/cmxcm. A T-score is not calculated for this measurement. IMPRESSION: Osteopenia measured at the right femoral neck. There is normal bone mineral density measured for the total right hip. The bone mineral density Note: Definitions established by the World Health Organization: 1. Normal: T-score is -1.0 or above. 2. Osteopenia: T-score is between -1.0 and -2.5 . 3. Osteoporosis: T-score is -2.5 or below. Electronically signed by: Daisy Piedra MD (08/30/2018 1:52 PM) [facility]
--- NOTE | 2018-08-31 13:17 | RAD ---
DATE: 08/30/2018 EXAM: MAMMO RANI SCREENING BILATERAL HISTORY: Routine screening COMPARISON: 08/29/2017 This study was interpreted with the benefit of Computerized Aided Detection (CAD). Breast Density: FATTY The breast parenchyma is primarily fatty replaced. Breast parenchyma level density A. FINDINGS: 2-D and 3-D tomosynthesis imaging was performed in CC and MLO projections. No new or enlarging breast densities are seen. Scattered benign type calcifications are present. There is a cluster of unchanged microcalcifications in the lateral aspect left breast, probably related to a small sclerosing fibroadenoma. IMPRESSION: Stable mammograms without evidence of malignancy. BI-RADS CATEGORY: 2 BENIGN FINDING(S) RECOMMENDED FOLLOW-UP: 12M 12 MONTH FOLLOW-UP PQRS compliance statement: Patient information was entered into a reminder system with a target due date for the next mammogram. Mammography is a sensitive method for finding small breast cancers, but it does not detect them all and is not a substitute for careful clinical examination. A negative mammogram does not negate a clinically suspicious finding and should not result in delay in biopsying a clinically suspicious abnormality. "Our facility is accredited by the [employer] Mammography Program."
== END | disposition home or self-care (01) ==
LOC: DXRAD 12:45
PROVIDERS: ATTEND Specialist
DX: Z12.31 Encounter for screening mammogram for malignant neoplasm of breast (principal); Z78.0 Asymptomatic menopausal state; M85.851 Other specified disorders of bone density and structure, right thigh
CPT/HCPCS: 77063; 77067; 77080; 77081

== ENCOUNTER → 2020-07-23 | Outpatient (CLI) | payer MEDICARE, BC, OTHER ==
[~2020-07-23] MED LIST changes: +HEPARIN PF 500 UNIT/5 ML DISP.SYRIN. IVP ONE; -ROSU10TA25 PO; +ROSU10TA26 PO
[2020-07-23 10:35] VITALS: BP 128/79
--- NOTE | 2020-07-23 11:01 | NUR ---
NURSING NOTE PT AMBULATE TO ROOM 109 FOR OUTPATIENT PORT ACCESS AND HEP LOCK. VITALS OBTAINED. PORT ACCESSED WITH 20 G 1IN TRACEY NEEDLE, GOOD BLOOD RETURN, FLUSHED WITH 10CC NS, FLUSHED WITH HEP LOCK. PORT DEACCESSED. NO COMPLICATIONS. PT AMBULATED OFF UNIT. GARLAND RIVAS.
== END | disposition home or self-care (01) ==
LOC: OPINF 10:20
PROVIDERS: ATTEND Internal Medicine Hematology & Oncology
DX: Z45.2 Encounter for adjustment and management of vascular access device (principal); C64.2 Malignant neoplasm of left kidney, except renal pelvis; I12.9 Hypertensive chronic kidney disease with stage 1 through stage 4 chronic kidney disease, or unspecified chronic kidney disease; N18.9 Chronic kidney disease, unspecified; M19.90 Unspecified osteoarthritis, unspecified site; J45.909 Unspecified asthma, uncomplicated; Z90.710 Acquired absence of both cervix and uterus; Z90.5 Acquired absence of kidney
CPT/HCPCS: 96523

== ENCOUNTER → 2020-09-03 | Outpatient (CLI) | payer MEDICARE, BC, OTHER ==
[2020-09-03 10:30] VITALS: BP 122/80
--- NOTE | 2020-09-03 10:42 | NUR ---
NURSING NOTE: OUTPATIENT PT AMBULATED TO ROOM 109 FOR PORT FLUSH. VITALS TAKEN. PORT ACCESSED, FLUSHED WITH 10ML OF NS, GOOD BLOOD RETURN, THEN LOCKED WITH 5ML OF HEPRIN. PT PORT DEACCESSED. PT AMBULATED OFF UNIT. GARLAND WOLFE
== END ==
LOC: OPINF 10:11
PROVIDERS: ATTEND Internal Medicine Hematology & Oncology
DX: Z45.2 Encounter for adjustment and management of vascular access device (principal); C64.2 Malignant neoplasm of left kidney, except renal pelvis; I12.9 Hypertensive chronic kidney disease with stage 1 through stage 4 chronic kidney disease, or unspecified chronic kidney disease; N18.9 Chronic kidney disease, unspecified; J45.909 Unspecified asthma, uncomplicated; M19.90 Unspecified osteoarthritis, unspecified site
CPT/HCPCS: 96374; 96523

== ENCOUNTER → 2020-09-24 | Outpatient (CLI) | payer MEDICARE, BC, OTHER ==
[2020-09-03 10:30] VITALS: BP 122/80
[~2020-09-24] MED LIST changes: -HEPARIN PF 500 UNIT/5 ML DISP.SYRIN. IVP ONE
--- NOTE | 2020-09-24 13:22 | RAD ---
Bone densitometry. Clinical history: Postmenopausal female for screening. Hip: Right. The technical acquisition is adequate. The lowest bone mineral density between the neck and total femur occurs at the the right total femur and is 1.069 gm/cm2. This corresponds to a T-score of 0.5 which is consistent with normal bone mineral density. At this bone density level, fracture risk is normal. Forearm/Radius: Left. The technical acquisition is adequate. The bone mineral density at the mid-third/33% left Radius is 0.570 gm/cm2. This corresponds to a T-score of -2.0 which is consistent with low bone mineral density. At this bone density level, fracture risk is increased. Impression: 1. Decrease bone mineral density of the left forearm. Bone mineral density of the right hip is normal. Note: T-Score definitions established by the World Health Organization: 1. Normal: T-score is -1.0 or above. 2. Osteopenia: T-score is between -1.0 and -2.5. 3. Osteoporosis: T-score is -2.5 or below. For patients in whom the T-Score does not apply, a Z-Score below -2.0 is consistent with abnormal bone mineral density. Electronically signed by: Luc Gan MD (09/24/2020 1:19 PM) [id number]
--- NOTE | 2020-09-26 11:23 | RAD ---
DATE: 09/24/2020 9:58 AM EXAM: DIGITAL SCREEN BILAT W/CAD HISTORY: Screening COMPARISON: 08/30/2018 Bilateral full field craniocaudal and mediolateral oblique images were obtained using digital technique. This study was interpreted with the benefit of Computerized Aided Detection (CAD). FINDINGS: Breast Density: FATTY The Breast Parenchyma is primarily fatty replaced. Breast parenchyma level density A. Newly apparent partially imaged right chest port. No suspicious masses, microcalcifications or architectural distortion is present to suggest malignancy in either breast. The visualized axillae are unremarkable. IMPRESSION: No mammographic evidence of malignancy. BI-RADS CATEGORY: 1 NEGATIVE RECOMMENDED FOLLOW-UP: 12M 12 MONTH FOLLOW-UP Annual screening mammography is recommended, unless clinically indicated sooner based on symptoms or change in physical exam. PQRS compliance statement: Patient information was entered into a reminder system with a target due date for the next mammogram. Mammography is a sensitive method for finding small breast cancers, but it does not detect them all and is not a substitute for careful clinical examination. A negative mammogram does not negate a clinically suspicious finding and should not result in delay in biopsying a clinically suspicious abnormality. "Our facility is accredited by the [employer] Mammography Program."
== END ==
LOC: DXRAD 09:43
PROVIDERS: ATTEND Specialist
DX: Z12.31 Encounter for screening mammogram for malignant neoplasm of breast (principal); Z13.820 Encounter for screening for osteoporosis; N95.9 Unspecified menopausal and perimenopausal disorder
CPT/HCPCS: 77067; 77080

== ENCOUNTER → 2020-10-15 | Outpatient (CLI) | payer MEDICARE, BC, OTHER ==
[~2020-10-15] MED LIST changes: +HEPARIN PF 500 UNIT/5 ML DISP.SYRIN. IVP ONE; +HEPARIN PF 500 UNIT/5 ML DISP.SYRIN. ONE
[2020-10-15 11:00] VITALS: BP 116/70
--- NOTE | 2020-10-15 11:01 | NUR ---
port accessed using sterile technique. Pt port is deep and a pediatric port. Pt laying supine make it easier to access. Port is also pretty superficial. flushed with 10 cc ns then pulled back 10 cc of blood to waste then labs drawn. Port then flushed with 30 cc ns and 3 cc or 300 Units of heparin. Port then de-accessed and covered. [employer]FF[employer]NAL [employer]
== END | disposition home or self-care (01) ==
LOC: OPINF 10:20
PROVIDERS: ATTEND Nurse Practitioner Family
DX: Z45.2 Encounter for adjustment and management of vascular access device (principal); I12.9 Hypertensive chronic kidney disease with stage 1 through stage 4 chronic kidney disease, or unspecified chronic kidney disease; N18.9 Chronic kidney disease, unspecified; M19.90 Unspecified osteoarthritis, unspecified site; J45.909 Unspecified asthma, uncomplicated; Z90.710 Acquired absence of both cervix and uterus; Z79.899 Other long term (current) drug therapy
CPT/HCPCS: 36591; 82306; 96523

== ENCOUNTER → 2021-01-19 | Outpatient (CLI) | payer MEDICARE, BC, OTHER ==
[2020-12-24 10:07] VITALS: BP 121/62
[~2021-01-19] MED LIST changes: -HEPARIN PF 500 UNIT/5 ML DISP.SYRIN. IVP ONE; -HEPARIN PF 500 UNIT/5 ML DISP.SYRIN. ONE; -LISI-334 PO; +LISI20TA18 PO
--- NOTE | 2021-01-19 10:33 | RAD ---
EXAM: Chest, 2 views. HISTORY: Chest pain. COMPARISON: 05/21/2018 FINDINGS: 2 views of the chest are obtained. There is no infiltrate, pleural effusion or pneumothorax . There is stable mild elevation of the right hemidiaphragm. There is stable suspected bilateral basi lar atelectasis or scarring. The heart is normal in size. There is a port catheter with the tip in th e superior vena cava. IMPRESSION: No acute pulmonary finding. Electronically signed by: Daisy Piedra MD (01/19/2021 10:30 AM) [id number]
== END ==
LOC: RAD 10:06
PROVIDERS: ATTEND Specialist
DX: R06.02 Shortness of breath (principal)
CPT/HCPCS: 71046

== ENCOUNTER → 2021-04-16 | Outpatient (CLI) | payer MEDICARE, BC, OTHER ==
[2021-03-18 10:45] VITALS: BP 131/67
[2021-04-16 17:04] LABS: BASO # 0.1 x10^3/uL (0.0-0.2); BASO % 1 % (0-3); EOS # 0.2 x10^3/uL (0.0-0.7); EOS % 2 % (0-3); HEMOGLOBIN 12.3 g/dL (12.0-15.5); LYMPH # 2.1 x10^3/uL (1.0-4.8); LYMPH % 19 % (24-48); MEAN CORPUSCULAR HEMOGLOBIN 29 pg (25-35); MEAN CORPUSCULAR HGB CONC 32 g/dL (31-37); MEAN CORPUSCULAR VOLUME 91 fL (79-100); MONO # 0.7 x10^3/uL (0.0-1.1); MONO % 6 % (0-9); NEUT # 8.3 x10^3uL (1.8-7.7); NEUT % 73 % (31-73); PLATELET COUNT 198 x10^3/uL (140-400); RED BLOOD COUNT 4.28 x10^6/uL (3.50-5.40); RED CELL DISTRIBUTION WIDTH 14.8 % (11.5-14.5); WHITE BLOOD COUNT 11.5 x10^3/uL (4.0-11.0)
[2021-04-16 17:05] LABS: C REACTIVE PROTEIN 18.8 mg/L (0-3.3); CALCIUM 9.3 mg/dL (8.5-10.1); CREATININE 1.6 mg/dL (0.6-1.0); GFR 31.3; POTASSIUM 4.8 mmol/L (3.5-5.1)
[2021-04-16 18:13] LABS: SEDIMENTATION RATE 40 (0-25)
== END ==
LOC: LAB 16:02
PROVIDERS: ATTEND Ophthalmology
DX: G45.9 Transient cerebral ischemic attack, unspecified (principal)
CPT/HCPCS: 36415; 80048; 85025; 85651; 86140

== ENCOUNTER → 2021-04-17 | Outpatient (CLI) | payer MEDICARE, BC, OTHER ==
[2021-03-18 10:45] VITALS: BP 131/67
--- NOTE | 2021-04-17 10:50 | RAD ---
CT HEAD WITHOUT CONTRAST 04/17/2021 10:39 AM Indication: Reason: RIGHT SIDE VISUAL LOSS WEDNSEDAY, SINCE RESOLVED / Spl. Instructions: / Histor y: Comparison: CT head without contrast May 21, 2018 Procedure: Multidetector CT imaging of the head was performed without the administration of contrast. Findings: There is no evidence of acute intracranial hemorrhage. There is no evidence of acute territ orial infarction. Please note that CT is limited for evaluation of acute ischemia. No mass effect or midline shift is identified . The ventricles and basilar cisterns have an appropriate appearance. No abnormal extra-axial fluid collections are seen. No acute osseous changes are identified. Impression: No evidence of acute intracranial abnormality CT DOSING PQRS STATEMENT: One or more of the following individualized dose reduction techniques were utilized for this examinat ion: 1. Automated exposure control 2. Adjustment of the mA and/or kV according to patient size 3. Use of iterative reconstruction technique Electronically signed by: Dhaval Thomas MD (04/17/2021 10:48 AM) [id number]
--- NOTE | 2021-04-17 10:57 | RAD ---
Clinical indications: Smoker. Visual impairment. History of giant cell arthritis. Duplex sonography of the cervical portion of both carotid arteries was performed including color flow imaging and spectral waveform analysis with flow velocity measurement and crum scale evaluation. Right side: Peak systolic flow velocity of the CCA is 103 cm/sec. Peak systolic flow velocity of the ICA is 131 cm/sec. Thus, the ICA/CCA ratio is 1.1. Peak end diastolic flow velocity of the ICA is 42 cm/sec. The peak systolic velocity of the ECA is 103 cm/sec. Left side: Peak systolic flow velocity of the CCA is 99 cm/sec. Peak systolic flow velocity of the ICA is 114 cm/sec. Thus, the ICA/CCA ratio is 1.1. Peak end diastolic flow velocity of the ICA is 38 cm/sec. Peak systolic flow velocity of the ECA is 94 cm/sec. There is a moderate-sized plaque within the right carotid bulb. This narrows the opening of the right ICA of 50-69 percent. No plaque is seen within the left carotid bifurcation.. Antegrade vertebral flow is seen bilaterally. The measurements were made using the NASCET criteria. 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 Electronically signed by: Manny Garcia MD (04/17/2021 10:55 AM) [id number]
== END ==
LOC: CT 10:18
PROVIDERS: ATTEND Specialist
DX: I65.23 Occlusion and stenosis of bilateral carotid arteries (principal); H54.7 Unspecified visual loss; M31.6 Other giant cell arteritis
CPT/HCPCS: 70450; 93880

== ENCOUNTER 2021-07-05 16:41 | Emergency (ER) | payer MEDICARE, BC, OTHER ==
[~2021-07-05] VITALS: Ht 157.5 cm; Wt 96.0 kg
[2021-07-05] MEDS ORDERED: MORPHINE SULFATE 4 MG/ML DISP.SYRIN. IV ONE (18:00)
[2021-07-05] MEDS ORDERED: ONDANSETRON PF 4 MG/2 ML VIAL. IVP ONE (18:00)
--- NOTE | 2021-07-05 18:27 | RAD ---
CT Head W/O Contrast: History: Reason: FALL / Spl. Instructions: / History: Comparison: none Axial images were obtained without contrast. There is marked diffuse atrophy. There is no mass effect, extraaxial fluid collections or hydrocepha ambrocio. There is no focal loss of crum-white matter distinction to suggest acute ischemia, i.e. stroke. Impression: No acute findings. End impression CT C-Spine without contrast: Clinical History: Reason: FALL / Spl. Instructions: / History: Technique: Axial helical images of the cervical spine were obtained without contrast, axial coronal and sagittal reconstruction was performed. Findings: There is no loss of vertebral body stature. There is no prevertebral soft tissue swelling. The vert ebral bodies are well aligned. There is straightening of the normal cervical lordosis which can be p ositional or could be chronic. The C1-C2 relationship is normal. The visualized osseous structures ap pear normal. Evaluation of the central canal is limited without contrast. There is multiple posterio r disc bulges resulting in flattening of the thecal sac. There is mild chronic flattening of the cerv ical cord at C4-C5 on the left. This makes the patient susceptible to possible cord contusion. There is marked narrowing of multiple neuroforamen. Impression: Marked degenerative changes of multilevel central and neuroforaminal stenosis. No acute findings. Cl inical correlation suggested. End impression PQRS Compliance Statement: One or more of the following individualized dose reduction techniques were utilized for this examinat ion: 1. Automated exposure control 2. Adjustment of the mA and/or kV according to patient size 3. Use of iterative reconstruction technique Electronically signed by: Yuri Kyle III, MD (07/05/2021 6:24 PM) [facility]
--- NOTE | 2021-07-05 18:39 | PHYS DOC ---
Past History Past Medical History: Arthritis, Cancer, Diabetes, Hypertension, Other (DMITRI RICE APRN) Past Surgical History: Tonsillectomy, Other (DMITRI RICE APRN) Alcohol Use: None Drug Use: None (DMITRI RICE APRN) General Adult EDM: Chief Complaint: MECHANICAL FALL HPI: HPI: Patient is a 75-year-old female who presents after a fall. Patient states that on she was walking out in her yard and slipped and fell on grass. Patient states when she slipped she fell on her back and butt. Patient denies hitting her head or loss of consciousness. Patient reports lower back pain along with left hip pain. Patient states has been taking Flexeril and Tylenol at home with little relief. Pain is worse with ambulation. Denies blood thinners. Patient has history of hypertension, diabetes, cancer. (DMITRI RICE APRN) Review of Systems: Review of Systems: Constitutional: Denies fever or chills Eyes: Denies change in visual acuity HENT: Denies nasal congestion or sore throat Respiratory: Denies cough or shortness of breath Cardiovascular: Denies chest pain or edema GI: Denies abdominal pain, nausea, vomiting, bloody stools or diarrhea : Denies dysuria Musculoskeletal: Lower back pain, left hip pain Integument: Denies rash Neurologic: Denies headache, focal weakness or sensory changes Endocrine: Denies polyuria or polydipsia Lymphatic: Denies swollen glands Psychiatric: Denies depression or anxiety (DMITRI RICE APRN) Current Medications: Current Meds: Current Medications Medications (Trade) Dose Ordered Sig/Ed Start Time Stop Time Status Last Admin Dose Admin Morphine Sulfate (Morphine 4mg Syringe) 4 mg 1X ONCE 07/05/21 18:00 07/05/21 18:06 DC 07/05/21 18:12 4 MG Ondansetron HCl (Zofran) 4 mg 1X ONCE 07/05/21 18:00 07/05/21 18:01 DC 07/05/21 18:11 4 MG (DMITRI RICE APRN) Allergies: Allergies: Allergies Coded Allergies Type Severity Reaction Last Updated Verified Sulfa (Sulfonamide Antibiotics) Allergy Intermediate 11/24/16 Yes (DMITRI RICE APRN) Physical Exam: PE: Constitutional: Well developed, well nourished, no acute distress, non-toxic appearance. [] HENT: Normocephalic, atraumatic, bilateral external ears normal, oropharynx moist, no oral exudates, nose normal. [] Eyes: PERRLA, EOMI, conjunctiva normal, no discharge. [] Neck: Normal range of motion, no tenderness, supple, no stridor. [] Cardiovascular:Heart rate regular rhythm, no murmur [] Lungs & Thorax: Bilateral breath sounds clear to auscultation [] Abdomen: Bowel sounds normal, soft, no tenderness, no masses, no pulsatile masses. [] Skin: Warm, dry, no erythema, no rash. [] Back: Lower back tenderness, no CVA tenderness. [] Extremities: No tenderness, no cyanosis, no clubbing, ROM intact, no edema. [] Neurologic: Alert and oriented X 3, normal motor function, normal sensory function, no focal deficits noted. [] Psychologic: Affect normal, judgement normal, mood normal. [] (DMITRI RICE APRN) Current Patient Data: Vital Signs: Vital Signs Date Time Temp Pulse Resp B/P (MAP) Pulse Ox O2 Delivery O2 Flow Rate FiO2 07/05/21 16:43 98.0 74 18 147/88 98 Room Air (DMITRI RICE APRN) EKG: EKG: [] (DMITRI RICE APRN) Radiology/Procedures: Radiology/Procedures: []T Head W/O Contrast: History: Reason: FALL / Spl. Instructions: / History: Comparison: none Axial images were obtained without contrast. There is marked diffuse atrophy. There is no mass effect, extraaxial fluid collections or hydrocephalus. There is no focal loss of crum-white matter distinction to suggest acute ischemia, i.e. stroke. Impression: No acute findings. End impression CT C-Spine without contrast: Clinical History: Reason: FALL / Spl. Instructions: / History: Technique: Axial helical images of the cervical spine were obtained without contrast, axial coronal and sagittal reconstruction was performed. Findings: There is no loss of vertebral body stature. There is no prevertebral soft tissue swelling. The vertebral bodies are well aligned. There is straightening of the normal cervical lordosis which can be positional or could be chronic. The C1-C2 relationship is normal. The visualized osseous structures appear normal. Evaluation of the central canal is limited without contrast. There is multiple posterior disc bulges resulting in flattening of the thecal sac. There is mild chronic flattening of the cervical cord at C4-C5 on the left. This makes the patient susceptible to possible cord contusion. There is marked narrowing of multiple neuroforamen. Impression: Marked degenerative changes of multilevel central and neuroforaminal stenosis. No acute findings. Clinical correlation suggested. End impression PQRS Compliance Statement: One or more of the following individualized dose reduction techniques were utilized for this examination: 1. Automated exposure control 2. Adjustment of the mA and/or kV according to patient size 3. Use of iterative reconstruction technique Electronically signed by: Yuri Kyle III, MD (07/05/2021 6:24 PM) [facility] LUMBAR [facility]INE 2-3V, XR BILATERAL HIP (WITH OR WITHOUT PELVIS) LEFT 2 VIEWS History: Reason: FALL / Spl. Instructions: / History: Technique: 3 views lumbar spine, AP view the pelvis and 2 additional views of the left hip. Comparison: Chest x-ray January 19, 2021 Findings: Lumbar spine: Posterior stabilization L4-L5 with posterior decompression. Grade 1 anterolisthesis L4 on L5. Mild retrolisthesis L5 on S1. Chronic T12 inferior endplate compression fracture. No acute fracture. Advanced degenerative disc changes. Advanced facet arthropathy. Hips and pelvis: No dislocation. No acute fracture. Mild bilateral hip DJD. Impression: 1. No acute osseous abnormalities. 2. Chronic T12 compression fracture. 3. Advanced multilevel lumbar spondylosis. Electronically signed by: Jeronimo Lindo DO (07/05/2021 7:19 PM) [facility] (DMITRI RICE APRN) Heart Score: C/O Chest Pain: No Risk Factors: Risk Factors: DM, Current or recent (<one month) smoker, HTN, HLP, family history of CAD, obesity. Risk Scores: Score 0 - 3: 2.5% MACE over next 6 weeks - Discharge Home Score 4 - 6: 20.3% MACE over next 6 weeks - Admit for Clinical Observation Score 7 - 10: 72.7% MACE over next 6 weeks - Early Invasive Strategies (DMITRI RICE APRN) Course & Med Decision Making: Course & Med Decision Making Pertinent Labs and Imaging studies reviewed. (See chart for details) [] 75-year-old female presents after a fall. Patient states on she was walking out her yard when she slipped and fell on the grass patient reports left hip and lower back pain. Denies hitting her head. Denies loss of consciousness or blood thinners. CT head and neck ordered to rule out fracture. Left hip and pelvis x-ray ordered and lumbar x-ray to rule out fractures. Patient given 4 mg of morphine for pain. Patient states that pain is less since medication was administered (DMITRI RICE APRN) Course & Med Decision Making Did not see or evaluate patient. Agree with [facility]'s work-up and disposition per note. (SRIDEVI MOTA MD) Dragon Disclaimer: Dragon Disclaimer: This electronic medical record was generated, in whole or in part, using a voice recognition dictation system. (DMITRI RICE APRN) Departure Departure: Impression: Primary Impression: Fall Qualified Codes: W19.XXXA - Unspecified fall, initial encounter Disposition: HOME / SELF CARE / HOMELESS Condition: STABLE Referrals: CARLEE ISLAS MD (PCP) Patient Instructions: Fall Prevention and Home Safety, [id number] Additional Instructions: You are seen in the emergency room after a fall. We x-rayed your left hip and pelvis, lower back, your head and neck. All imaging was negative for fracture. Please call your PCP tomorrow and make a follow-up appointment. Ibuprofen at home for discomfort. Return to the emergency room if you have worsening symptoms or concerns. EMERGENCY DEPARTMENT GENERAL DISCHARGE INSTRUCTIONS Thank you for coming to [facility] (ED) today and trusting us with you care. We trust that you had a positivie experience in our Emergency Department. If you wish to speak to the department management, you may call the director at [phone]. YOUR FOLLOW UP INSTRUCTIONS ARE FOLLOWS: 1. Do you have a private Doctor? If you do not have a private doctor, please ask for a resource list of physicians or clinics that may be able to assist you with follow up care. 2. The Emergency Physician has interpreted your x-rays. The X-Ray specialist will also review them. If there is a change in the findings, you will be notified in 48 hours when at all possible. 3. A lab test or culture has been done, your results will be reviewed and you will be notified if you need a change in treatment. ADDITIONAL INSTRUCTIONS AND INFORMATION: 1. Your care today has been supervised by a physician who is specially trained in emergency care. Many problems require more than one evaluation for a complete diagnosis and treatment. We recommend that you schedule your follow up appointment as recommended to ensure complete treatment of you illness or injury. If you are unable to obtain follow up care and continue to have a problem, or if your condition worsens, we recommend that you return to the ED. 2. We are not able to safely determine your condition over the phone nor are we able to give sound medical advice over the phone. For these safety reasons, if you call for medical advice we will ask you to come to the ED for further evaluation. 3. If you have any questions regarding these discharge instructions please call the ED at [phone]. SAFETY INFORMATION: In the interest of safety, wellness, and injury prevention; we encourage you to wear your sealbelt, if you smoke; quite smoking, and we encourage family to use a protective helmet for bicycling and other sporting events that present an increased risk for head injury. IF YOUR SYMPTOMS WORSEN OR NEW SYMPTOMS DEVELOP, OR YOU HAVE CONCERNS ABOUT YOUR CONDITION; OR IF YOUR CONDITION WORSENS WHILE YOU ARE WAITING FOR YOUR FOLLOW UP APPO INTMENT; EITHER CONTACT YOUR PRIMARY CARE DOCTOR, THE PHYSICIAN WHOSE NAME AND NUMBER YOU WERE GIVEN, OR RETURN TO THE ED IMMEDIATELY. DMITRI RICE APRN Jul 05, 2021 18:39 SRIDEVI MOTA MD Jul 05, 2021 23:35
--- NOTE | 2021-07-05 19:22 | RAD ---
XR LUMBAR SPINE 2-3V, XR BILATERAL HIP (WITH OR WITHOUT PELVIS) LEFT 2 VIEWS History: Reason: FALL / Spl. Instructions: / History: Technique: 3 views lumbar spine, AP view the pelvis and 2 additional views of the left hip. Comparison: Chest x-ray January 19, 2021 Findings: Lumbar spine: Posterior stabilization L4-L5 with posterior decompression. Grade 1 anterolisthesis L4 on L5. Mild retrolisthesis L5 on S1. Chronic T12 inferior endplate compression fracture. No acute fra cture. Advanced degenerative disc changes. Advanced facet arthropathy. Hips and pelvis: No dislocation. No acute fracture. Mild bilateral hip DJD. Impression: 1. No acute osseous abnormalities. 2. Chronic T12 compression fracture. 3. Advanced multilevel lumbar spondylosis. Electronically signed by: Jeronimo Lindo DO (07/05/2021 7:19 PM) [facility]
[2021-07-05] MEDS ORDERED: HYDROcodone/APAP 5/325MG 1 TAB TABLET PO ONE (20:00)
[2021-07-05 20:12] VITALS: BP 110/70
== END 2021-07-05 20:11 | disposition home or self-care (01) ==
LOC: ER 16:41
DX: M54.5 Low back pain (principal); M25.552 Pain in left hip; E11.9 Type 2 diabetes mellitus without complications; I10 Essential (primary) hypertension; Z88.2 Allergy status to sulfonamides; W01.0XXA Fall on same level from slipping, tripping and stumbling without subsequent striking against object, initial encounter; Y93.01 Activity, walking, marching and hiking; Y92.89 Other specified places as the place of occurrence of the external cause; Y99.8 Other external cause status
CPT/HCPCS: 70450; 72100; 72125; 73502; 96374; 96375; 99285; J2270; J2405

== ENCOUNTER → 2021-10-07 | Outpatient (CLI) | payer MEDICARE, BC, OTHER ==
[2021-07-22 11:26] VITALS: BP 120/77
[2021-10-07 13:19] LABS: BASO # 0.1 x10^3/uL (0.0-0.2); BASO % 0 % (0-3); EOS % 0 % (0-3); HEMATOCRIT 38.4 % (36.0-47.0); HEMOGLOBIN 12.2 g/dL (12.0-15.5); LYMPH # 1.2 x10^3/uL (1.0-4.8); LYMPH % 6 % (24-48); MEAN CORPUSCULAR HEMOGLOBIN 30 pg (25-35); MEAN CORPUSCULAR HGB CONC 32 g/dL (31-37); MEAN CORPUSCULAR VOLUME 93 fL (79-100); MONO # 0.7 x10^3/uL (0.0-1.1); MONO % 4 % (0-9); NEUT # 17.2 x10^3uL (1.8-7.7); NEUT % 90 % (31-73); PLATELET COUNT 198 x10^3/uL (140-400); RED BLOOD COUNT 4.13 x10^6/uL (3.50-5.40); RED CELL DISTRIBUTION WIDTH 15.7 % (11.5-14.5); WHITE BLOOD COUNT 19.2 x10^3/uL (4.0-11.0)
[2021-10-07 13:23] LABS: ALBUMIN 3.5 g/dL (3.4-5.0); CREATININE 1.6 mg/dL (0.6-1.0); GFR 31.3; PHOSPHORUS 4.3 mg/dL (2.6-4.7); POTASSIUM 4.2 mmol/L (3.5-5.1)
[2021-10-07 13:48] LABS: BACTERIA,URINE MANY /HPF (0-FEW); BILIRUBIN,URINE NEG (NEG); CLARITY,URINE CLOUDY; COLOR,URINE YELLOW; GLUCOSE,URINE >=1000 mg/dL (NEG); NITRITE,URINE NEG (NEG); SQUAMOUS EPITHELIAL CELL,UR MANY /LPF; UROBILINOGEN,URINE 0.2 mg/dL (0.2 mg/dL)
[2021-10-07 14:21] LABS: % ATYL 2 % (0-0); % BANDS 3 % (0-9); % BASOS 2 % (0-3); % LYMPHS 8 % (24-48); % MONOS 3 % (0-10); % MYELOS 1 % (0-0); % SEGS 81 % (35-66); PLT ESTIMATE ADEQUATE (ADEQUATE)
[2021-10-08 10:07] LABS: CREATININE,RANDOM URINE 71.8 mg/dL (Not Establ.)
[2021-10-08 10:09] LABS: CALCIUM PTH 9.6 mg/dL (8.7-10.3); CREATININE PTH 1.47 mg/dL (0.57-1.00); PTH INTACT 45 pg/mL (15-65)
== END ==
LOC: LAB 12:04
PROVIDERS: ATTEND Internal Medicine Nephrology
DX: N18.30 Chronic kidney disease, stage 3 unspecified (principal); N25.81 Secondary hyperparathyroidism of renal origin; Z79.899 Other long term (current) drug therapy
CPT/HCPCS: 36415; 80069; 81001; 82570; 83970; 84156; 85007; 85025; 87077; 87086; 87186

== ENCOUNTER → 2021-10-29 | Outpatient (CLI) | payer MEDICARE, BC, OTHER ==
[~2021-10-29] MED LIST changes: +HEPARIN PF 500 UNIT/5 ML DISP.SYRIN. IVP ONE
[2021-10-29 10:39] VITALS: BP 104/69
--- NOTE | 2021-10-29 11:00 | NUR ---
out patient note Pt arrived to the unit was placed in ICU6 at 1035 via ambulation accompanied by self port accessed, flushed, and de-accessed according to polices and procedures and orders. pt left at 1100 via ambulation accompanied by self.
== END | disposition home or self-care (01) ==
LOC: OPINF 10:27
PROVIDERS: ATTEND Internal Medicine Hematology & Oncology
DX: Z45.2 Encounter for adjustment and management of vascular access device (principal); C64.2 Malignant neoplasm of left kidney, except renal pelvis; N18.30 Chronic kidney disease, stage 3 unspecified; Z79.899 Other long term (current) drug therapy
CPT/HCPCS: 96523

== ENCOUNTER → 2021-10-30 | Outpatient (CLI) | payer MEDICARE, BC, OTHER ==
[2021-10-29 10:39] VITALS: BP 104/69
[~2021-10-30] MED LIST changes: -HEPARIN PF 500 UNIT/5 ML DISP.SYRIN. IVP ONE
--- NOTE | 2021-10-30 17:20 | RAD ---
Bilateral digital screening 2-D and 3-D (digital breast tomosynthesis) mammogram: Reason for examination: Routine screening. Comparison: Mammogram from 09/24/2020 and 08/30/2018. Interpretation was made with the benefit of CAD. FINDINGS: Breast density: Category A. Breast tissue is almost entirely fatty. No suspicious breast mass, malignant appearing calcifications, or architectural distortion is seen. T here is an unchanged small group of rounded calcifications in the left upper outer quadrant which are likely due to a degenerative fibroadenoma. IMPRESSION: No evidence of malignancy. Assessment: BI-RADS 2. Benign finding. Recommendation: Routine screening mammograms. The patient will receive a letter with the results in the mail. Patient information will be entered i nto the mammography reminder system with a target recall date for the next mammogram. A reminder heidi er will be generated. Electronically signed by: Rivka Donnelly MD (10/30/2021 5:18 PM) [id number]
== END ==
LOC: MAMMO 09:11
PROVIDERS: ATTEND Specialist
DX: Z12.31 Encounter for screening mammogram for malignant neoplasm of breast (principal)
CPT/HCPCS: 77063; 77067